=== PATIENT | male | born 1950 | race Caucasian/White ===

== ENCOUNTER 2019-11-04 09:18 | Emergency (ER) | payer OTHER ==
--- OUTSIDE RECORDS SUMMARY | 2019-11-04 09:21 | XMS REPORT ---
:1950 [facility] Address [address] [place] [address] Dr. Vincent [address] [place] [id number] Care Team Providers Name Role Phone Unavailable Unavailable Unavailable Problems This patient has no known problems. Allergies, Adverse Reactions, Alerts This patient has no known allergies or adverse reactions. Medications This patient has no known medications.
--- OUTSIDE RECORDS SUMMARY | 2019-11-04 09:21 | XMS REPORT | Summary of Care ---
:1950 Author Organization [address] [address] Care Team Providers Name Role Phone Unavailable Primary Care Provider Unavailable Reason for Visit Reason Comments Orders Encounter Details Date Type Department Care Team Description 10/30/2019 Telephone [facility] Roro Oliveira MD Orders Medicine, [address] [place] [address] [place] [address], [facility] [phone] [facility] [address] [place] [address] Allergies No Known Allergiesdocumented as of this encounter (statuses as of 10/30/2019) Medications Medication Sig Dispensed Refills Start Date End Date Status aspirin 81 mg chewable Take 81 mg by 0 Active tablet mouth. rosuvastatin 40 mg Take 1 tablet by 90 tablet 1 05/30/2019 Active tabletIndications: Mixed mouth at hyperlipidemia bedtime. nystatin 100,000 Apply to 60 g 5 05/30/2019 Active unit/gram area(s) 3 powderIndications: (three) times Intertrigo daily. metformin ER 750 mg 24 Take 1 tablet by 30 tablet 5 05/31/2019 Active hr tabletIndications: mouth daily with Type 2 diabetes mellitus breakfast. with complication, without long-term current use of insulin AMLODIPINE 5 mg TAKE 1 TABLET BY 90 tablet 0 08/15/2019 Active tabletIndications: MOUTH EVERY DAY Essential hypertension documented as of this encounter (statuses as of 10/30/2019) Active Problems Problem Noted Date Essential hypertension 09/20/2018 Mixed hyperlipidemia 09/20/2018 BMI 36.0-36.9,adult 09/20/2018 History of melanoma 09/20/2018 Preventative health care 09/20/2018 Prediabetes 09/20/2018 Tobacco abuse 09/20/2018 documented as of this encounter (statuses as of 10/30/2019) Immunizations Name Administration Dates Next Due Influenza High Dose 05/30/2019 Pneumococcal 13 Conjugate, PCV13 (Prevnar 13) 05/30/2019 documented as of this encounter Social History Tobacco Use Types Packs/Day Years Used Date Current Every Day Smoker Smokeless Tobacco: Never Used Sex Assigned at Date Recorded Not on file Job Start Date Occupation Industry Not on file Not on file Not on file Travel History Travel Start Travel End No recent travel history available. documented as of this encounter Last Filed Vital Signs Not on filedocumented in this encounter Plan of Treatment Date Type Specialty Care Team Description 11/27/2019 Office Visit Family Medicine Taj, Gio Roy MD [address] [place] [phone] Name Type Priority Associated Diagnoses Order Schedule COMP. METABOLIC PANEL LAB Routine Essential hypertension Expected: 2019, ([id number]) Expires: 10/30/2020 GLYCOSYLATED HEMOGLOBIN LAB Routine Prediabetes Expected: 10/31/2019, (A1C) Expires: 10/30/2020 LIPID PANEL (14333)(TOTAL LAB Routine Mixed hyperlipidemia Expected: 2019, CHOLESTEROL, Expires: 10/30/2020 TRIGLYCERIDES, HDL) Health Maintenance Due Date Last Done Comments EYE EXAM 1960 URINE MICROALBUMIN 1960 DTaP,Tdap,and Td Vaccines (1 - Tdap) 1961 FOOT EXAM 1968 COLONOSCOPY 2000 Zoster Recombinant Vaccine (SHINGRIX) (1 2000 of 2) LUNG CANCER SCREEN: Recommended for age 0905/27/2005 55-80 with 30 + pack year history Medicare Wellness Visit 2015 HgA1C 11/28/2019 05/30/2019, 09/20/2018 CREATININE (SERUM) 05/30/2020 05/30/2019, 10/20/2018 LDL-C 05/30/2020 05/30/2019, 09/20/2018 PNEUMOCOCCAL VACCINES 65+ (2 of 2 - 05/30/2020 05/30/2019 PPSV23) HEPATITIS C (HCV) SCREEN Completed 09/20/2018 INFLUENZA VACCINE Completed 05/30/2019 documented as of this encounter Results Not on filedocumented in this encounter Visit Diagnoses Diagnosis Essential hypertension - Primary Unspecified essential hypertension Prediabetes Other abnormal glucose Mixed hyperlipidemia documented in this encounter Insurance Payer Benefit Plan Subscriber ID Effective Dates Phone Address Type / Group [employer] - CHOICE CARE [id number] 2017-Presen Medicare Adv MANAGED t O MEDICARE documented as of this encounter
--- NOTE | 2019-11-04 09:55 | ER ---
Nurse's Notes [facility] Name: Jerry Giron Age: 69 yrs Sex: Male : 1950 Arrival Date: 11/04/2019 Time: 09:20 Bed 23 Private MD: Diagnosis: Acute upper respiratory infection, unspecified;Type 2 diabetes mellitus Presentation: 11/03 09:43 Chief complaint: Patient states: cough congestion sore throat since Tuesday. Coronavirus iw screen: The patient has NOT traveled to [place] in the past 14 days. Proceed with normal triage procedures. Ebola Screen: Patient negative for fever greater than or equal to 101.5 degrees Fahrenheit, and additional compatible Ebola Virus Disease symptoms Patient denies exposure to infectious person. Patient denies travel to an Ebola-affected area in the 21 days before illness onset. No symptoms or risks identified at this time. Initial Sepsis Screen: Does the patient meet any 2 criteria? No. Patient's initial sepsis screen is negative. Does the patient have a suspected source of infection? No. Patient's initial sepsis screen is negative. Risk Assessment: Do you want to hurt yourself or someone else? Patient reports no desire to harm self or others. 09:43 Method Of Arrival: Ambulatory iw 09:43 Acuity: DOROTHEA 4 iw Triage Assessment: 10:05 General: Appears in no apparent distress. comfortable, Behavior is calm, cooperative, aj1 appropriate for age. Pain: Complains of pain in left aspect of posterior pharynx and right aspect of posterior pharynx. Historical: - Allergies: 09:44 No Known Allergies; iw - PMHx: 09:44 Hypertension; iw - Immunization history:: Adult Immunizations. - Social history:: Smoking status: Patient denies any tobacco usage or history of. - Family history:: not pertinent. Screenin:06 Abuse screen: Denies threats or abuse. Denies injuries from another. Nutritional aj1 screening: No deficits noted. Tuberculosis screening: No symptoms or risk factors identified. Assessment: 10:06 General: Appears in no apparent distress. comfortable, Behavior is calm, cooperative, aj1 appropriate for age. Pain: Complains of pain in right aspect of posterior pharynx and left aspect of posterior pharynx. Neuro: Level of Consciousness is awake, alert, obeys commands, Oriented to person, place, time, situation. Cardiovascular: Patient's skin is warm and dry. Respiratory: Reports cough that is productive, Airway is patent Respiratory effort is even, unlabored, Respiratory pattern is regular, symmetrical. GI: No signs and/or symptoms were reported involving the gastrointestinal system. : No signs and/or symptoms were reported regarding the genitourinary system. EENT: Reports sore throat. Derm: No signs and/or symptoms reported regarding the dermatologic system. Skin is pink, warm \T\ dry. normal. Musculoskeletal: No signs and/or symptoms reported regarding the musculoskeletal system. Circulation, motion, and sensation intact. Vital Signs: 10:05 BP 119 / 81; Pulse 81; Resp 18; Pulse Ox 97% on R/A; aj1 ED Course: 09:20 Patient arrived in ED. as 09:33 Jose Keane MD is Attending Physician. iw 09:44 Triage completed. iw 10:05 Arm band placed on. aj1 10:06 Patient has correct armband on for positive identification. Bed in low position. Call aj1 light in reach. Side rails up X 1. 10:06 No provider procedures requiring assistance completed. aj1 10:08 Patient did not have IV access during this emergency room visit. aj1 Administered Medications: 10:04 Drug: Zithromax 500 mg Route: PO; aj1 10:08 Follow up: Response: No adverse reaction aj1 Outcome: 09:54 Discharge ordered by . yoana 10:06 Discharged to home ambulatory. aj1 10:06 Condition: good 10:06 Discharge instructions given to patient, Instructed on discharge instructions, follow up and referral plans. medication usage, Demonstrated understanding of instructions, follow-up care, medications, Prescriptions given X 1. 10:08 Patient left the ED. aj1 Signatures: Shante Giron, RN RN aj1 Jose Keane MD MD cha Martinez, Amelia as Erlinda Dykes, RN RN iw
--- NOTE | 2019-11-04 09:55 | EDPHYS ---
Physician Documentation [facility] Name: Jerry Giron Age: 69 yrs Sex: Male : 1950 Arrival Date: 11/04/2019 Time: 09:20 Bed 23 Private MD: ED Physician Jose Keane HPI: 11/03 09:47 This 69 yrs old Male presents to ER via Ambulatory with complaints of Cold yoana Symptoms. 09:47 The patient presents with sore throat. The patient describes throat pain as burning, yoana raw, scratchy. Onset: The symptoms/episode began/occurred 2 day(s) ago. The patient or guardian reports cough, that is intermittent, flu symptoms, arthralgias, myalgias. Modifying factors: The symptoms are alleviated by nothing. the symptoms are aggravated by nothing. Severity of symptoms: At their worst the symptoms were mild, in the emergency department the symptoms are unchanged. Associated signs and symptoms: The patient has no apparent associated signs or symptoms. Historical: - Allergies: 09:44 No Known Allergies; iw - PMHx: 09:44 Hypertension; iw - Immunization history:: Adult Immunizations. - Social history:: Smoking status: Patient denies any tobacco usage or history of. - Family history:: not pertinent. ROS: 09:47 Constitutional: Negative for fever, chills, and weight loss, Eyes: Negative for injury, yoana pain, redness, and discharge, ENT: Negative for injury, pain, and discharge, Neck: Negative for injury, pain, and swelling, Cardiovascular: Negative for chest pain, palpitations, and edema, Abdomen/GI: Negative for abdominal pain, nausea, vomiting, diarrhea, and constipation, Back: Negative for injury and pain, : Negative for injury, bleeding, discharge, and swelling, MS/Extremity: Negative for injury and deformity, Skin: Negative for injury, rash, and discoloration, Neuro: Negative for headache, weakness, numbness, tingling, and seizure, Psych: Negative for depression, anxiety, suicide ideation, homicidal ideation, and hallucinations, Allergy/Immunology: Negative for hives, rash, and allergies, Endocrine: Negative for neck swelling, polydipsia, polyuria, polyphagia, and marked weight changes, Hematologic/Lymphatic: Negative for swollen nodes, abnormal bleeding, and unusual bruising. 09:47 Respiratory: Positive for cough, "sounds productive". Exam: 09:47 Constitutional: This is a well developed, well nourished patient who is awake, alert, yoana and in no acute distress. Head/Face: Normocephalic, atraumatic. Eyes: Pupils equal round and reactive to light, extra-ocular motions intact. Lids and lashes normal. Conjunctiva and sclera are non-icteric and not injected. Cornea within normal limits. Periorbital areas with no swelling, redness, or edema. Neck: Trachea midline, no thyromegaly or masses palpated, and no cervical lymphadenopathy. Supple, full range of motion without nuchal rigidity, or vertebral point tenderness. No Meningismus. Chest/axilla: Normal chest wall appearance and motion. Nontender with no deformity. No lesions are appreciated. Cardiovascular: Regular rate and rhythm with a normal S1 and S2. No gallops, murmurs, or rubs. Normal PMI, no JVD. No pulse deficits. Respiratory: Lungs have equal breath sounds bilaterally, clear to auscultation and percussion. No rales, rhonchi or wheezes noted. No increased work of breathing, no retractions or nasal flaring. Abdomen/GI: Soft, non-tender, with normal bowel sounds. No distension or tympany. No guarding or rebound. No evidence of tenderness throughout. Back: No spinal tenderness. No costovertebral tenderness. Full range of motion. Male : Normal genitalia with no discharge or lesions. Skin: Warm, dry with normal turgor. Normal color with no rashes, no lesions, and no evidence of cellulitis. MS/ Extremity: Pulses equal, no cyanosis. Neurovascular intact. Full, normal range of motion. Neuro: Awake and alert, GCS 15, oriented to person, place, time, and situation. Cranial nerves II-XII grossly intact. Motor strength 5/5 in all extremities. Sensory grossly intact. Cerebellar exam normal. Normal gait. Psych: Awake, alert, with orientation to person, place and time. Behavior, mood, and affect are within normal limits. 09:47 ENT: Posterior pharynx: Uvula: swelling, erythema, that is mild, exudate, is not appreciated. Vital Signs: 10:05 BP 119 / 81; Pulse 81; Resp 18; Pulse Ox 97% on R/A; aj1 MDM: 09:43 Patient medically screened. [facility] 09:51 Data reviewed: vital signs, nurses notes. [facility] 11/03 09:51 Order name: Glucose, Ancillary Testing EDMS Administered Medications: 10:04 Drug: Zithromax 500 mg Route: PO; aj1 10:08 Follow up: Response: No adverse reaction aj1 Disposition: 11/04/19 09:54 Discharged to Home. Impression: Acute upper respiratory infection, unspecified, Type 2 diabetes mellitus. - Condition is Stable. - Discharge Instructions: Type 2 Diabetes Mellitus, Diagnosis, Adult, Upper Respiratory Infection, Adult, Upper Respiratory Infection, Adult, [id number], Cough, Adult, [id number], Cough, Adult, Type 2 Diabetes Mellitus, Diagnosis, Adult, [id number]. - Prescriptions for Bromfed DM 2- 30-10 mg/5 mL Oral syrup - take 10 milliliter by ORAL route every 6 hours; 160 milliliter. Zithromax 500 mg Oral Tablet - take 1 tablet by ORAL route once daily for 4 days; 4 tablet. - Medication Reconciliation Form, Thank You Letter, Antibiotic Education, Prescription Opioid Use form. - Follow up: Private Physician; When: 2 - 3 days; Reason: Recheck today's complaints, Continuance of care, Re-evaluation by your physician. - Problem is new. - Symptoms have improved. Signatures: Dispatcher [employer] EDShante Fung RN RN aj1 Jose Keane MD MD cha Williams, Irene, RN RN iw Corrections: (The following items were deleted from the chart) 10:08 09:54 11/04/2019 09:54 Discharged to Home. Impression: Acute upper respiratory aj1 infection, unspecified; Type 2 diabetes mellitus. Condition is Stable. Forms are Medication Reconciliation Form, Thank You Letter, Antibiotic Education, Prescription Opioid Use. Follow up: Private Physician; When: 2 - 3 days; Reason: Recheck today's complaints, Continuance of care, Re-evaluation by your physician. Problem is new. Symptoms have improved. [facility]
[2019-11-04] MEDS ORDERED: AZITHROMYCIN 250 MG TAB ONE (10:06)
[2019-11-04 10:17] VITALS: BP 119/81; O2SAT 97
== END 2019-11-04 10:08 | disposition home or self-care (01) ==
LOC: ER 09:18
DX: J06.9 Acute upper respiratory infection, unspecified (principal); E11.9 Type 2 diabetes mellitus without complications
CPT/HCPCS: 82947; 99283